=== PATIENT | female | born 1985 | race Caucasian/White ===

== ENCOUNTER → 2018-07-27 | Outpatient (CLI) | payer OTHER ==
[~2018-07-27] MED LIST: FLEXERIL PO; LEXAPRO 10 MG T10 M1; MEDROLDOSEPACK PO; MOBIC7.5 MG PO; MONONESSA1 EACH; NAPROSYN500 MG PO; NOHOMEMEDICATIONS; NORCO 5-325 TA1 EACH; NORCO 5-325 TA1 EACH PO; OXYCONTIN10 M1 PO; PHENERGAN 25 MG25 M1 PO; PRENATAL + DHA1 EACH; XANAX 0.5 MG0.5 M1; ZOFRAN ODT4 MG PO; ZPAK PO
== END ==
LOC: M.MRI 14:30
DX: M25.461 Effusion, right knee (principal); Z98.890 Other specified postprocedural states

== ENCOUNTER → 2020-05-14 | Emergency (ER) | payer OTHER ==
[~2020-05-14] VITALS: Ht 165.1 cm; Wt 79.4 kg
[~2020-05-14] MED LIST changes: +ADDERALL 10 MG10 MG PO; +ADDERALL 30 MG30 MG PO; +NORCO 5-325 TA1 EAC2 PO; +TOMAZAPAM; +WELLBUTRIN XL150 MG PO
[2020-05-14 09:14] VITALS: BP 151/99
== END ==
LOC: M.ERS 06:47
DX: M25.561 Pain in right knee (principal); F17.210 Nicotine dependence, cigarettes, uncomplicated; Z90.49 Acquired absence of other specified parts of digestive tract

== ENCOUNTER 2021-01-12 15:17 | Emergency (ER) | payer OTHER ==
[~2021-01-12] VITALS: Ht 165.1 cm; Wt 79.4 kg
[2021-01-12] MEDS ORDERED: CYMBALTA30 MG PO (15:33)
[2021-01-12] MEDS ORDERED: WELLBUTRIN XL300 MG PO (15:33)
[2021-01-12] MEDS ORDERED: REQUIP 0.25 M0.25 MG PO (15:34)
[2021-01-12 15:39] LABS: URINE BILIRUBIN NEGATIVE (Negative); URINE BLOOD 3+ (Negative); URINE CLARITY CLEAR; URINE COLOR YELLOW; URINE GLUCOSE-RANDOM NEGATIVE (Negative); URINE KETONES TRACE (Negative); URINE LEUKOCYTES-REFLEX 3+ (Negative); URINE NITRITE-REFLEX NEGATIVE (Negative); URINE PROTEIN NEGATIVE (Negative); URINE SPECIFIC GRAVITY <= 1.005 (1.005-1.030)
[2021-01-12 15:52] LABS: SQUAMOUS >10 Many /LPF (0-3); URINE WBC-REFLEX >25 Many /HPF (0-5); WBC CLUMPS Moderate (None Seen)
[2021-01-12 15:53] LABS: BACTERIA-REFLEX >30 Many /HPF (None Seen); CASTS None Seen /LPF (None Seen); CRYSTALS None Seen /LPF (None Seen)
[2021-01-12 15:58] LABS: HEMATOCRIT 40.7 % (37.0-47.0); HEMOGLOBIN 13.5 gm/dL (12.0-15.0); MCH 31.2 pg (26.0-34.0); MCHC 33.2 g/dL (28.0-37.0); MCV 94.1 fL (80.0-100.0); MPV 7.5 fl. (7.2-11.1); NUCLEATED RBCS 0 /100WBC; PLATELET COUNT* 316 thou/uL (150-400); RBC 4.32 mil/uL (4.20-5.00); RDW-CV 12.8 % (10.5-14.5); WBC 19.6 thou/uL (4.0-11.0)
[2021-01-12 16:04] LABS: AMP/METHAMP POSITIVE (Negative); BARBITURATES Negative (Negative); BENZODIAZEPINES POSITIVE (Negative); COCAINE Negative (Negative); METHADONE Negative (Negative); OPIATES POSITIVE (Negative); PCP Negative (Negative); THC Negative (Negative)
[2021-01-12 16:06] LABS: CALCIUM 9.2 mg/dL (8.5-10.1); CREATININE 0.8 mg/dL (0.6-1.3); POTASSIUM 3.3 mmol/L (3.5-5.1)
[2021-01-12 16:10] LABS: ALBUMIN 2.9 g/dL (3.4-5.0); TOTAL BILIRUBIN 0.5 mg/dL (<0.1-1.0); TOTAL PROTEIN 7.1 g/dL (6.4-8.2)
[2021-01-12 16:50] LABS: ABSOLUTE MONOCYTES 0.2 thou/uL (0.0-1.2); ABSOLUTE NEUTROPHILS 17.4 thou/uL (1.6-8.1); PLATELET ESTIMATE ADEQUATE
[2021-01-12] MEDS ORDERED: ZOFRAN ODT4 MG PO (17:29)
[2021-01-12] MEDS ORDERED: DOXYCYCLINE 10100 MG PO (17:29)
[2021-01-12] MEDS ORDERED: MACROBID 100 M100 M2 PO (17:51)
[2021-01-12 18:38] VITALS: BP 115/62
--- NOTE | 2021-01-13 10:09 | EKG ---
[place] [address] ELECTROCARDIOGRAM REPORT Name: CHRISTIN NGUYEN Room: [facility]#: [id number] Admission: 01/12/21 Attend Phys: Discharge: 01/12/21 Date of : 81 Date of Service: 01/12/21 1601 Report #: [id number] THIS REPORT FOR: //name// [facility] ED Test Date: 2021-01-12 Test Time: 16:01:27 Pat Name: CHRISTIN NGUYEN Department: Room: Gender: [place] Applier: [facility] : 1985 Requested By: Ann Sanchez Order Number: [id number] MD: Jacques Dean Measurements Intervals Stevenson Rate: 117 P: 32 MS: 117 QRS: 31 QRSD: 85 T: 54 QT: 306 QTc: 427 Interpretive Statements Sinus tachycardia Probable left atrial enlargement Baseline wander in lead(s) V5 No previous ECG available for comparison Electronically Signed On 01-13-2021 10:09:42 CDT by Jacques Dean [email or web address] <ELECTRONICALLY SIGNED> By: Jacques Dean MD, MERGED WITH [facility] 01/13/21 1009 1601 1601 Jacques Dean MD, FAC /EPI
== END 2021-01-12 18:38 | disposition home or self-care (01) ==
LOC: M.ERS 15:17
PROVIDERS: Nurse Practitioner Family
DX: N73.9 Female pelvic inflammatory disease, unspecified (principal); N39.0 Urinary tract infection, site not specified; A59.9 Trichomoniasis, unspecified; F41.9 Anxiety disorder, unspecified; F17.210 Nicotine dependence, cigarettes, uncomplicated; Z90.89 Acquired absence of other organs; Z98.890 Other specified postprocedural states; Z90.49 Acquired absence of other specified parts of digestive tract; Z79.899 Other long term (current) drug therapy